=== PATIENT | male | born 1960 | race Hispanic/Latino ===

== ENCOUNTER 2023-12-29 08:06 | Emergency (ER) | payer OTHER ==
[2023-12-29] MEDS ORDERED: Lidocaine 1% w/Epinephrine 1:100K 20 ML VIAL ONE (09:13)
[2023-12-29] MEDS ORDERED: Acetaminophen 500 MG TAB ONE (10:09)
== END 2023-12-29 10:34 ==
LOC: NAV ERS 08:06
DX: S01.112A Laceration without foreign body of left eyelid and periocular area, initial encounter (principal); S02.85XA Fracture of orbit, unspecified, initial encounter for closed fracture; E11.9 Type 2 diabetes mellitus without complications; I10 Essential (primary) hypertension; W01.10XA Fall on same level from slipping, tripping and stumbling with subsequent striking against unspecified object, initial encounter
CPT/HCPCS: 12013; 70450; 70486